=== PATIENT | male | born 2000 | race African-American/Black ===

== ENCOUNTER 2025-02-17 11:03 | Emergency (ER) | payer OTHER, SELFPAY ==
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
--- NOTE | ~2025-02-17 | XR_ITS ---
EXAMINATION: XR HAND 3 OR MORE VIEWS LEFT HISTORY: pain, injury COMPARISON: There are no prior studies available for comparison. FINDINGS: Three views of the left hand are submitted. Osseous mineralization is normal. There is no fracture or dislocation. The joint spaces are preserved. The soft tissues are unremarkable. XR/XR hand LT min 3V IMPRESSION: Unremarkable examination of the left hand. Electronically signed by: Aleksandr Lao MD 02/17/2025 12:34 PM EDT
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
[2025-02-17 12:03] VITALS: BP 122/60; PULSE 73; RESP 16; TEMP 36.9; O2SAT 97; BMI 35.5
[2025-02-17 17:17] VITALS: BP 104/51; PULSE 57; RESP 16; TEMP 36.2; O2SAT 97
== END 2025-02-17 17:17 | disposition home or self-care (01) ==
PROVIDERS: Emergency Provider Emergency Medicine
DX: S00.81XA Abrasion of other part of head, initial encounter (principal); S63.602A Unspecified sprain of left thumb, initial encounter; S00.83XA Contusion of other part of head, initial encounter; Y04.2XXA Assault by strike against or bumped into by another person, initial encounter; Y93.89 Activity, other specified; Y92.218 Other school as the place of occurrence of the external cause; Y99.8 Other external cause status
CPT/HCPCS: 12011; 70486; 73130; 99282; 99284

== ENCOUNTER → 2025-02-17 12:07 | Outpatient (BNV) | payer MEDICAID, SELFPAY | PROVIDERS: Visit Provider Radiology Diagnostic Radiology | DX: S09.93XA Unspecified injury of face, initial encounter (principal); M79.642 Pain in left hand; S60.922A Unspecified superficial injury of left hand, initial encounter | CPT/HCPCS: 70486; 73130 ==